=== PATIENT | female | born 1975 | race Two or more races ===

== ENCOUNTER 2020-08-01 19:32 | Emergency (ER) | payer OTHER ==
[~2020-08-01] VITALS: Ht 165.1 cm; Wt 154.2 kg
[2020-08-02] MEDS ORDERED: BACTRIM DS TAB1 EACH PO (01:50)
== END 2020-08-02 02:08 | disposition home or self-care (01) ==
LOC: ER 19:32
DX: K76.0 Fatty (change of) liver, not elsewhere classified (principal); N39.0 Urinary tract infection, site not specified; R10.11 Right upper quadrant pain